=== PATIENT | female | born 1990 | race Two or more races ===

== ENCOUNTER 2023-05-07 13:55 | Outpatient (CLI) | payer OTHER | END 2023-05-07 16:47 | disposition home or self-care (01) | LOC: PRENATAL 13:55 | PROVIDERS: ATTEND Obstetrics & Gynecology Maternal & Fetal Medicine | DX: O35.9XX0 Maternal care for (suspected) fetal abnormality and damage, unspecified, not applicable or unspecified (principal); O35.3XX0 Maternal care for (suspected) damage to fetus from viral disease in mother, not applicable or unspecified; O44.00 Complete placenta previa NOS or without hemorrhage, unspecified trimester; Z14.8 Genetic carrier of other disease; Z3A.19 19 weeks gestation of pregnancy ==